=== PATIENT | male | born 1985 | race Hispanic/Latino ===

== ENCOUNTER 2021-01-18 15:44 | Emergency (ER) | payer MEDICAID, OTHER ==
[~2021-01-18] VITALS: Ht 175.3 cm; Wt 86.2 kg
[2021-01-18 15:44] VITALS: BP 133/80
[2021-01-18] MEDS ORDERED: LIDOCAINE HCL 1% 20 ML VIAL ONE (18:38)
[2021-01-18] MEDS ORDERED: SULF1TAB42 PO (19:11)
== END 2021-01-18 19:27 | disposition home or self-care (01) ==
LOC: EDH 15:44
DX: S61.412A Laceration without foreign body of left hand, initial encounter (principal); E11.9 Type 2 diabetes mellitus without complications; Z88.1 Allergy status to other antibiotic agents; W26.8XXA Contact with other sharp object(s), not elsewhere classified, initial encounter; Y93.89 Activity, other specified; Y92.89 Other specified places as the place of occurrence of the external cause; Y99.8 Other external cause status
CPT/HCPCS: 12002; 99282

== ENCOUNTER 2021-12-08 20:04 | Emergency (ER) | payer BC, MEDICAID ==
[~2021-12-08] VITALS: Ht 175.3 cm; Wt 81.2 kg
[~2021-12-08 20:04] MED LIST: SULF1TAB42 PO
[2021-12-08 20:06] VITALS: BP 124/77
[2021-12-08] MEDS ORDERED: TIZA4CAP8 PO (21:48)
== END 2021-12-08 21:58 | disposition home or self-care (01) ==
LOC: EDH 20:04
DX: S13.4XXA Sprain of ligaments of cervical spine, initial encounter (principal); S33.5XXA Sprain of ligaments of lumbar spine, initial encounter; E11.9 Type 2 diabetes mellitus without complications; Z88.1 Allergy status to other antibiotic agents; X58.XXXA Exposure to other specified factors, initial encounter; Y93.89 Activity, other specified; Y92.89 Other specified places as the place of occurrence of the external cause; Y99.8 Other external cause status
CPT/HCPCS: 72100; 72125

== ENCOUNTER 2022-02-02 15:01 | Emergency (ER) | payer BC, MEDICAID ==
[~2022-02-02] VITALS: Ht 175.3 cm; Wt 86.2 kg
[~2022-02-02 15:01] MED LIST changes: +TIZA4CAP8 PO
[2022-02-02 15:08] VITALS: BP 130/77
[2022-02-02] MEDS ORDERED: IBUPROFEN 800 MG TAB PO ONE (15:30)
[2022-02-02] MEDS ORDERED: NAPR-1180 PO (15:59)
== END 2022-02-02 16:26 | disposition home or self-care (01) ==
LOC: EDH 15:01
DX: S63.502A Unspecified sprain of left wrist, initial encounter (principal); S60.221A Contusion of right hand, initial encounter; S60.512A Abrasion of left hand, initial encounter; E11.9 Type 2 diabetes mellitus without complications; Z98.890 Other specified postprocedural states; Z79.899 Other long term (current) drug therapy; Z88.1 Allergy status to other antibiotic agents; V49.49XA Driver injured in collision with other motor vehicles in traffic accident, initial encounter; Y93.89 Activity, other specified; Y92.413 State road as the place of occurrence of the external cause; Y99.8 Other external cause status
CPT/HCPCS: 29125; 73110; 73130